=== PATIENT | female | born 1960 | race Caucasian/White ===

== ENCOUNTER 2018-04-06 10:50 | Outpatient (RCR) | payer BC ==
[2018-03-13 11:06] VITALS: BP 110/63
[~2018-04-06 10:50] MED LIST: CYCL-277 PO; ESZO1TAB19 PO; IRON SUCROSE 100 MG/5 ML VIAL 300 MG in NS(*) 0.9% 250 ML BAG 250 ML IVP ONE; LEVO150T72 PO; NS(*) 0.9% 1000 ML BAG 1,000 ML IV PRN; TRAM-420 PO
[2018-04-06 11:00] VITALS: BP 115/79
[2018-04-06] MEDS ORDERED: LIDOCAINE/SOD BICARB 8.4% SYR ID PRN (11:35)
[2018-04-06] MEDS ORDERED: NS(*) 0.9% 100 ML BAG 100 ML IVPB PRN (11:35)
[2018-04-06] MEDS ORDERED: DEXTROSE 5%(*) 100 ML BAG 100 ML IVPB PRN (11:35)
[2018-04-06] MEDS ORDERED: NS(*) 0.9% 1000 ML BAG 1,000 ML IV ONE (11:35)
[2018-04-06] MEDS ORDERED: DIPH-740 PO (11:54)
[2018-04-06] MEDS ORDERED: GABA-549 PO (11:54)
[2018-04-06] MEDS ORDERED: LEVO-3 PO (11:55)
[2018-04-06] MEDS ORDERED: OMEP-218 PO (11:55)
[2018-04-06] MEDS ORDERED: CYAN1000 IJ (11:56)
[2018-04-06] MEDS ORDERED: IRON SUCROSE IVPB ONE (12:00)
[2018-04-06] MEDS ORDERED: NS 0.9% IVPB ONE (12:00)
[2018-04-06 15:07] VITALS: BP 112/68
== END 2018-04-19 11:55 | disposition home or self-care (01) ==
LOC: SPU 10:50
PROVIDERS: ATTEND Family Medicine
DX: D50.8 Other iron deficiency anemias (principal); E03.9 Hypothyroidism, unspecified; R10.13 Epigastric pain; G89.4 Chronic pain syndrome; K90.81 Whipple's disease
CPT/HCPCS: 96365; 96366; J1756; J7030; J7050